=== PATIENT | male | born 1985 | race Caucasian/White ===

== ENCOUNTER 2024-05-26 12:00 | Day surgery (SDC) | payer BC ==
[2024-05-26] MEDS ORDERED: Lidocaine 1% PF 5 ML VIAL ONE (13:18)
[2024-05-26] MEDS ORDERED: Sodium Bicarbonate 2.5 MEQ/5 ML SDV ONE (13:18)
[2024-05-26 14:16] VITALS: BP 121/77; TEMP 97.9
== END 2024-05-26 14:02 | disposition home or self-care (01) ==
LOC: ULT 12:00
PROVIDERS: ATTEND Family Medicine
PROC: 0G9K3ZZ Drainage of Thyroid Gland, Percutaneous Approach (ICD-10-PCS; principal; 2024-05-26)
DX: D34 Benign neoplasm of thyroid gland (principal); E04.1 Nontoxic single thyroid nodule; E55.9 Vitamin D deficiency, unspecified; I10 Essential (primary) hypertension; J30.2 Other seasonal allergic rhinitis; F98.8 Other specified behavioral and emotional disorders with onset usually occurring in childhood and adolescence; L23.7 Allergic contact dermatitis due to plants, except food; Z80.9 Family history of malignant neoplasm, unspecified; Z98.84 Bariatric surgery status; Z79.899 Other long term (current) drug therapy
CPT/HCPCS: 10005; 88173; 88305